=== PATIENT | female | born 1940 | race African-American/Black ===

== ENCOUNTER 2017-12-25 07:29 | Inpatient (IN) ==
[2017-12-25] MEDS ORDERED: Chlorhexidine Gluconate 2% 1 Pack (2 Cloths) TOPICAL SCH (08:45)
[2017-12-25] MEDS ORDERED: Metoprolol Tartrate 25 MG Tablet PO SCH (08:45)
[2017-12-25] MEDS ORDERED: Chlorhexidine 4% Topical 120 APPLIC/120 ML Bottle TOPICAL SCH (08:45)
[2017-12-25] MEDS ORDERED: ceFAZolin 2 GM Premix Inj 2 GM/50 ML PIGGYBACK IV.SIG SCH (09:00)
[2017-12-25] MEDS ORDERED: Sodium Chlor 0.9% Inj 80 ML, Bupivacaine Liposo PF 1.3% Inj 20 ML P-ARTICULR SCH ×2 (09:00)
[2017-12-25] MEDS ORDERED: Tranexamic Acid Inj 925 MG in Sodium Chlor 0.9% Inj 100 ML IV.SIG SCH ×2 (09:00→11:00)
[2017-12-25] MEDS ORDERED: Sodium Chlor 0.9% Inj 500 ML IV.SIG SCH (09:00)
[2017-12-25] MEDS ORDERED: ceFAZolin 2 GM Premix Inj 2 GM/100 ML BAG IV.SIG SCH (09:00)
[2017-12-25] MEDS: fentaNYL Citrate Inj 100 MCG/2 ML Ampul ONE ×2 (09:02→09:27)
[2017-12-25] MEDS ORDERED: Propofol Inj 500 MG/50 ML Vial ONE (10:00)
[2017-12-25] MEDS ORDERED: Bupivacaine/Dextrose 0.75% Inj 2 ML Ampul ONE (10:01)
[2017-12-25] MEDS ORDERED: Zolpidem Tartrate 5 MG Tablet PO PRN (10:08)
[2017-12-25] MEDS ORDERED: Aluminum/Magnesium/Simethacone Susp 30 ML UDC PO PRN (10:08)
[2017-12-25] MEDS ORDERED: Morphine Inj 4 MG/ML Vial IV.PUSH PRN (10:08)
[2017-12-25] MEDS ORDERED: Acetaminophen 325 MG Tablet PO PRN (10:08)
[2017-12-25] MEDS ORDERED: Post-op Orders (for Pharmacy) OTHER STA (10:08)
[2017-12-25] MEDS ORDERED: Bisacodyl 10 MG Supp RECTAL PRN (10:08)
[2017-12-25] MEDS ORDERED: Tranexamic Acid Inj 0 MG in Sodium Chlor 0.9% Inj 100 ML IV.SIG ONE (10:08)
[2017-12-25] MEDS ORDERED: Phenylephrine/NS 1000 MCG/10ML Syringe IV.PUSH ONE (12:00)
--- NOTE | 2017-12-25 13:28 | P.OP ---
- Preoperative Diagnosis (1) Primary osteoarthritis of left knee - Postoperative Diagnosis (1) Primary osteoarthritis of left knee Date of procedure: 12/25/17 Procedure: Left total knee arthroplasty using [place] Triathlon prosthesis (uncemented) Anesthesia: regional (Adductor canal block), local (Exparel), spinal Surgeon: Maximus Desai MD Employment Adjudicator: BRYN Kirkpatrick Estimated blood loss (mL): 220 Tourniquet time (min): 0 Pathology: none sent Operation and Findings: Indications and Findings: This 77-year-old woman has had long-standing arthritis in her left knee over the past 10 years with this progressively worsening to the point that she can only walk a few feet using a walker because of the pain. She has swelling, locking, giving way, difficulty fully extending the knee, deformity in the knee and inability to ascend and descend stairs. She rarely leaves her home because of difficulty. She has been treated by several physicians including the undersigned with analgesics, anti-inflammatory agents, activity modification, intra-articular corticosteroids, exercise and ambulatory aids. Physical findings show a greater than 20 flexion deformity with range only going to 90. There is crepitation on motion with tenderness on motion. There are palpable osteophytes. There is a genu varum deformity. X -ray shows severe osteoarthritis in the knee with loss of articular cartilage to [id number] in the medial compartment, extensive osteophytes posteriorly, medially, laterally and in the patellofemoral joint. There are loose bodies also noted. Operative findings: There is severe osteoarthritis in the left knee with extensive large osteophytes throughout the knee especially in the posterior aspect. She had a limited range of motion initially from -20 of extension to only about 90 of flexion. There was marked medial laxity. There is crepitation. There was eburnation. There is exposed subchondral bone. The prosthesis used was a [place] Triathlon prosthesis. The femur was a size 4, left, cruciate retaining, uncemented. The tibial baseplate was a size 4 Tritanium with a 9 mm X3 polyethylene cruciate retaining spacer. The patella was a size 32 mm asymmetric Tritanium backed. The patient was brought to the clean-air operating suite after administration of a regional anesthetic by adductor canal block. A spinal anesthetic was administered. The position was supine with a small bolster under the hip on the operative side. A pneumatic tourniquet was applied to the upper thigh. The lower extremity was prepped with alcohol, Hibiclens and ChloraPrep and draped in the usual manner with the knee draped free. An appropriate timeout procedure was carried out. An incision was made from about 3 fingerbreadths above the superior medial pole of patella down the tibial tubercle on the medial side. The incision was deepened through the subcutaneous tissue to the retinacular structures which were exposed medially and laterally. A medial retinacular incision was made from the superior medial pole of patella down the tibial tubercle and up into the quadriceps tendon, splitting it longitudinally in the medial one third. The patella was reflected. The infrapatellar fat pad was debulked. The anterior cruciate ligament was excised. Medial and lateral meniscectomies were initiated. Fenestrations were made in the distal femur and proximal tibia for intramedullary referencing guides. The distal femoral cutting guide and jig were assembled for a 5, 8 mm cut. When this was fit into position,the cutting block was stabilized with pins. The jig was removed. The distal femoral cut was completed with the oscillating saw. Multiple osteophytes were trimmed from the distal femur using osteotomes and rongeur. The sizing guide was positioned in place along Whitesides line and the epicondylar axis and stabilized with pins. The femoral size was determined as noted above. The 4-in-1 cutting block was positioned in place. Anterior and posterior cuts were made followed by posterior and anterior chamfer cuts taking care to prevent injury to ligamentous structures. Osteophytes were trimmed from the distal femur. A bone plug was placed into the fenestration of the distal femur. The proximal tibia was exposed. The medial and lateral meniscectomies were completed. Osteophytes were trimmed for eventual placement of the cutting guide. The intramedullary proximal tibial cutting guide was positioned in place and stabilized with a pin for rotation. The depth of cut was verified with a stylus off the high side. The cutting block was stabilized with pins. The jig was removed. The depth of cut was verified and adjusted appropriately with the use of the spacer block. The proximal tibial cut was made with the oscillating saw taking care to prevent injury to neurovascular and ligamentous structures. Proximal tibial bone was removed. Osteophytes were trimmed from the tibia. Multiple large osteophytes and loose bodies were extracted from the posterior aspect of the femur and popliteal fossa. Local anesthetic was administered with Exparel in the posterior capsule. The tibial baseplate trial was positioned in place. After verifying the appropriate size, the base plate trial was positioned in place along with its spacer. The femoral component was impacted into place. The alignment was checked. The tibial baseplate was pinned in place on the tibia. Attention was directed to the patella. The patella drill guide was positioned in place for the appropriate sized patella. Patellar drilling was then carried out. The trial patella was positioned in place. The knee was taken through a range of motion which was easily 0 extension to 130 of flexion. The patella trial was removed. The femoral drill holes were made. The femoral trials were removed. The tibial spacer was removed. A bone plug was placed into the proximal tibia. The tibial punch was impacted through the proximal tibial punch guide. This was all removed followed by placement of the tibial drill guide. The tibial drill holes were made. The guide was removed. The cut ends of bone were cleaned with pulse lavage. The tibial baseplate was impacted into place and seated appropriately. The spacer was inserted. The the femoral component was impacted into place and seated appropriately. The patella component was seated with the patellar vice and tightened appropriately. The knee was taken through a range of motion which was comparable to the previous range of motion with excellent stability in flexion and extension and appropriate patellofemoral tracking. The remainder of the Exparel was injected throughout the knee as a local anesthetic. Drains were brought out the superior lateral aspect of the suprapatellar pouch. Wound closure commenced using 0 Vicryl interrupted [id number] sutures for the capsular and fascial structures, 2-0 Vicryl interrupted simple sutures with buried knots for the subcutaneous tissues and 4-0 Monocryl, continuous subcuticular closure for the skin. The wound was dressed with Dermabond Prineo followed by a dry sterile dressing. Sterile soft roll with a cooling pad and Reed bandage from the base of the toes to mid thigh were applied. Patient was transferred from the operating room to the recovery room in satisfactory condition having tolerated procedure well. Counts were correct. Specimens: None. Estimated blood loss: 220 mL
--- NOTE | 2017-12-25 13:34 | P.DCO ---
- Physical Therapy Physical Therapy: Transfer training, bed to chair Knee: Total knee, Protocol: Left, Gait training, Full weight bearing Left Lower Extremity Weight Bearing: Weight bearing as tolerated Left Lower Extremity Range of Motion: Active ROM (Active, active assisted, passive range of motion. Range of motion goal is 0 extension to 130 of flexion which is what was achieved in the operating room.) - Nursing Nursing: Dressing changes Dressing changes: Daily dressing change, Coverderm/Primapore Additional instructions: Do not remove Dermabond Prineo. - Certification Need for Home Health services: I have seen patient Kinga Maldonado on 12/25/17. My clinical findings support the need for the requested home health care services because: Need for Home Health Services: Limited mobility due to disease progression, Deconditioned with increased weakness, Limited ability to care for self, High risk of falls Homebound Certification: I certify that my clinical findings support that this patient is homebound because: Homebound Certification: Post-op weakness, Unsteady gait/balance, Unsafe to leave home unassisted
[2017-12-25] MEDS: Ketorolac Inj 30 MG/ML (IVP) Vial IV.PUSH SCH ×2 (14:00→18:26)
[2017-12-25] MEDS ORDERED: fentaNYL Citrate Inj 100 MCG/2 ML Ampul ONE (14:18)
--- NOTE | 2017-12-25 14:20 | XR ---
EXAM DATE: 12/25/2017 2:10 PM EDT AGE/SEX: 77 years / Female INDICATIONS: Post op left knee CLINICAL DATA: This is the patient's initial encounter. Patient reports that signs and symptoms have been present for 1 day and indicates a pain score of Nonresponsive. MEDICAL/SURGICAL HISTORY: Non-responsive. . left knee replaced COMPARISON: No prior exams available for comparison. FINDINGS: Total knee arthroplasty is in satisfactory position. The alignment is anatomic. CONCLUSION: Postsurgical changes as above. Electronically signed by: Ethan Lee MD 12/25/2017 2:19 PM EDT
[2017-12-25] MEDS ORDERED: *morphine SULFATE 4 MG/ML PERIprocedure ONLY ONE (14:22)
--- NOTE | 2017-12-25 14:49 | P.CON ---
History of Present Illness Consult date: 12/25/17 Reason for Consult: Medical management Primary Care Provider: Jas Regan MD Family Provider: Jas Regan MD Chief Complaint: Postop left knee arthroplasty History of Present Illness: 77-year-old female with past medical history of end-stage arthritis who despite medical management including NSAIDs, corticosteroid injections, physical therapy over the course of several years continue to have severe left knee pain affecting her daily living of activity including ambulation for which patient has been relying on walker. She was taken to the operating room today and underwent Left total knee arthroplasty. Patient was seen postoperatively in PACU, denies any chest pain or shortness of breath. Vitals remained stable. Review of Systems All other systems reviewed negative except as stated in HPI PMFSH - History History Provided By: Patient - Medical History Medical History: Medical History (Last Reviewed 12/25/17 @ 08:19 by Korina Power) Anxiety Arthritis Back pain COPD (chronic obstructive pulmonary disease) Congenital heart disease Depression Diabetes Fibromyalgia GERD (gastroesophageal reflux disease) High cholesterol Hypertension Joint pain Neck pain Sleep apnea with use of continuous positive airway pressure (CPAP) - Surgical History Surgical History: Surgical History (Last Reviewed 12/25/17 @ 08:20 by Korina Power) History of History of inguinal hernia repair History of laminectomy - Tobacco History Second Hand Smoke Exposure: No Smoking Status: Never smoker Tobacco Type: Cigarettes - Alcohol History How Often Do You Have a Drink Containing Alcohol: Never - Substance Use History Substance History: No History of Abuse - Travel History Recent Travel in the [place] Within the Last 8 Weeks: No Recent Travel Out of the Country Within the Last 8 Weeks: No Medications and Allergies Active Medications: Active Medications Acetaminophen (Tylenol) 650 mg PO Q6H PRN PRN Reason: Pain Less Than 3 On Scale Al Hydrox/Mg Hydrox/Simethicone (Mag-Al Plus Susp Liq) 30 ml PO Q6H PRN PRN Reason: INDIGESTION Al Hydroxide/Mg Hydroxide (Milk Of Magnesia Liq) 30 ml PO BID PRN PRN Reason: Mild Constipation Albuterol (Duoneb Neb (Prn)) 1 ampul NEB QID NEB PRN PRN Reason: Shortness Of Breath Albuterol (Ventolin Hfa Inh) 2 puff INH Q4H PRN PRN Reason: SHORTNESS OF BREATH Amlodipine Besylate (Norvasc) 5 mg PO DAILY [facility] Aspirin (Aspirin Chew) 81 mg PO BID [facility] Atenolol (Tenormin) 50 mg PO DAILY [facility] Atorvastatin Calcium (Lipitor) 40 mg PO HS [facility] Bisacodyl (Dulcolax Supp) 10 mg RECTAL DAILY PRN PRN Reason: SEVERE CONSITIPATION Chlorhexidine Gluconate (Chlorhexidine 2% Cloth) 3 pack TOPICAL OPHTHALMIC PATHOLOGIST [facility] Stop: 12/28/17 08:43 Last Admin: 12/25/17 08:10 Dose: 3 pack Chlorhexidine Gluconate (Hibiclens 4% Topical) 1 applicatio TOPICAL ONCE [facility] Stop: 12/29/17 08:44 Last Admin: 12/25/17 08:35 Dose: 1 applicatio Sodium Chloride 80 ml/ (Bupivacaine Liposome 20 ml) 0 ml P-ARTICULR ONCE [facility] Stop: 12/25/17 16:00 Last Admin: 12/25/17 11:28 Dose: 100 bag Diphenhydramine HCl (Benadryl) 25 mg PO Q6H PRN PRN Reason: ITCHING Duloxetine HCl (Cymbalta) 60 mg PO DAILY [facility] Famotidine (Pepcid) 20 mg PO DAILY [facility] Furosemide (Lasix) 40 mg PO DAILY [facility] Lactated Ringer's (Lr 1000 Ml Inj) 1,000 mls @ 30 mls/hr IV.SIG .Q24H [facility] Stop: 12/28/17 08:43 Last Infusion: 12/25/17 11:29 Dose: Infused Sodium Chloride (Ns Inj) 500 mls @ 30 mls/hr IV.SIG .Q10H [facility] Stop: 12/28/17 08:43 Tranexamic Acid 925 mg/ Sodium (Chloride) 109.25 mls @ 200 mls/hr IV.SIG ONCE [facility] Stop: 12/26/17 18:00 Last Admin: 12/25/17 14:00 Dose: 200 mls/hr Tranexamic Acid 925 mg/ Sodium (Chloride) 109.25 mls @ 200 mls/hr IV.SIG ONCE [facility] Stop: 12/26/17 08:59 Last Infusion: 12/25/17 11:29 Dose: Infused Cefazolin/Sodium Chloride (Ancef 2 Gm Premix Inj) 2 gm in 100 mls @ 200 mls/hr IV.SIG OPHTHALMIC PATHOLOGIST [facility] Last Infusion: 12/25/17 11:29 Dose: Infused Cefazolin Sodium 1,000 mg/ (Sodium Chloride) 100 mls @ 200 mls/hr IV.SIG Q6H [facility] Stop: 12/26/17 05:29 Lactated Ringer's (Lr 1000 Ml Inj) 1,000 mls @ 80 mls/hr IV.CONT .[id number] [facility] Last Admin: 12/25/17 14:00 Dose: 80 mls/hr Ketorolac Tromethamine (Toradol Inj) 15 mg IV.PUSH Q6H [facility] Stop: 12/27/17 07:01 Last Admin: 12/25/17 14:00 Dose: 15 mg Lactulose (Lactulose Liq) 30 ml PO DAILY PRN PRN Reason: SEVERE CONSITIPATION Losartan Potassium (Cozaar) 50 mg PO BID [facility] Metformin HCl (Glucophage) 500 mg PO DAILY [facility] Metoprolol Tartrate (Lopressor) 25 mg PO OPHTHALMIC PATHOLOGIST [facility] Stop: 12/28/17 08:43 Last Admin: 12/25/17 09:26 Dose: Not Given Montelukast Sodium (Singulair) 10 mg PO QPM [facility] Morphine Sulfate (Morphine Inj) 2 mg IV.PUSH Q3H PRN PRN Reason: BREAKTHROUGH PAIN Ondansetron HCl (Zofran Odt) 4 mg PO Q6H PRN PRN Reason: NAUSEA OR VOMITING Oxycodone/Acetaminophen (Percocet 10/325 Mg) 1 tab PO Q4H PRN PRN Reason: PAIN SCALE 6 TO 10 Oxycodone/Acetaminophen (Percocet 5/325 Mg) 1 tab PO Q4H PRN PRN Reason: PAIN LESS THAN 5 ON SCALE Patient Own Medication( Fluticasone Inhalation 50 Mcg) 0 each INH DAILY [facility] Povidone Iodine (Betadine 5% Antisepsis Kit) 1 applicatio EACH NARE OPHTHALMIC PATHOLOGIST [facility] Stop: 12/28/17 08:43 Last Admin: 12/25/17 08:30 Dose: 1 applicatio Pregabalin (Lyrica) 100 mg PO TID [facility] Senna/Docusate Sodium (Susan-Colace) 1 tab PO BID [facility] Sennosides (Senokot) 17.2 mg PO BID PRN PRN Reason: Moderate Constipation Sodium Chloride (Ns Flush) 2 ml IV.FLUSH BID [facility] Sodium Chloride (Ns Flush) 2 ml IV.FLUSH PRN PRN PRN Reason: FLUSH AFTER USING IV ACCESS Zolpidem Tartrate (Ambien) 5 mg PO HS PRN PRN Reason: INSOMNIA Allergies Allergy/AdvReac Type Severity Reaction Status Date / Time codeine Allergy Vomiting Verified 12/25/17 08:20 Home Medications Medication Instructions Recorded Confirmed Type albuterol sulfate [Ventolin HFA] 2 puff INHALATION Q4-6H PRN 11/30/17 12/25/17 History amlodipine 5 mg PO DAILY 11/30/17 12/25/17 History atenolol 50 mg PO DAILY 11/30/17 12/25/17 History duloxetine [Cymbalta] 60 mg PO DAILY 11/30/17 12/25/17 History famotidine [Pepcid] 20 mg PO DAILY 11/30/17 12/25/17 History fluticasone furoate 1 puff INHALATION DAILY 11/30/17 12/25/17 History furosemide 40 mg PO DAILY 11/30/17 12/25/17 History ipratropium-albuterol 3 ml INHALATION QID PRN 11/30/17 12/25/17 History irbesartan 150 mg PO BID 11/30/17 12/25/17 History meloxicam 15 mg PO DAILY 11/30/17 12/25/17 History metformin 500 mg PO DAILY 11/30/17 12/25/17 History montelukast [Singulair] 10 mg PO QPM 11/30/17 12/25/17 History pregabalin [Lyrica] 100 mg PO TID 11/30/17 12/25/17 History rosuvastatin [Crestor] 20 mg PO DAILY 11/30/17 12/25/17 History Physical Exam Vital signs: Vital Signs 12/25/17 08:23 12/25/17 13:45 12/25/17 14:00 Temperature 98.3 F 97.5 F L Pulse Rate 64 62 60 Respiratory Rate 20 20 20 Blood Pressure 145/70 H 111/53 L 112/62 Pulse Oximetry 98 94 L 93 L 12/25/17 14:15 12/25/17 14:34 Temperature Pulse Rate 61 61 Respiratory Rate 20 20 Blood Pressure 139/62 130/60 Pulse Oximetry 95 93 L Intake & Output 12/24/17 12/25/1718 18:59 06:59 18:59 Intake Total 2400.25 / 2400.25 Output Total 265 / 265 Balance 2135.25 / 2135.25 Weight 92.5 kg Intake: IV 1209.25 / 1209.25 LR 1000 mL Inj 1,000 ML @ 30 1000 / 1000 mls/hr IV.SIG .Q24H [facility] Rx#: [id number] Cyklokapron Inj 925 MG In NS 109.25 / 109.25 Inj 100 ML @ 200 mls/hr IV.SIG ONCE [facility] Rx#:[id number] Ancef 2 GM Premix Inj 2 gm In 100 / 100 100 ml @ 200 mls/hr IV.SIG OPHTHALMIC PATHOLOGIST [facility] Rx#:[id number] Anesthesia Amount 1191 / 1191 Output: Estimated Blood Loss 220 / 220 Wound Drainage 45 / 45 Left Knee 45 / 45 Other: Weight On Admission 92.5 kg Narrative: GENERAL: NAD SKIN: Warm and dry. HEAD: Atraumatic. Normocephalic. EYES: Pupils equal and round. No scleral icterus. No injection or drainage. ENT: No nasal bleeding or discharge. Mucous membranes pink and moist. NECK: Trachea midline. No JVD. CARDIOVASCULAR: Regular rate and rhythm. RESPIRATORY: No accessory muscle use. Clear to auscultation. Breath sounds equal bilaterally. GASTROINTESTINAL: Abdomen soft, non-tender, nondistended. Hepatic and splenic margins not palpable. MUSCULOSKELETAL: Extremities without clubbing, cyanosis, or edema. No obvious deformities. NEUROLOGICAL: Awake and alert. No obvious cranial nerve deficits. Motor grossly within normal limits. s/p Left knee repair; dressing in place. Normal speech. PSYCHIATRIC: Appropriate mood and affect; insight and judgment normal. Assessment and Plan - Plan 77-year-old female with s/p Left total knee arthroplasty December 25, 2017 Management per orthopedic surgery DVT prophylaxis per orthopedic surgery PT consult to treat and eval Pain management accordingly History of hypertension, diabetes type II, hyperlipidemia and other chronic medical conditions Resume outpatient medications DVT prophylaxis: Per orthopedic surgery Thank you for this consultation
[2017-12-25] MEDS: oxyCODONE/Acetaminophen 10/325 Tablet PO PRN ×2 (15:46→21:35)
[2017-12-25] MEDS: Montelukast 10 MG Tablet PO SCH (18:26)
[2017-12-25] MEDS: Senna/Docusate Sodium 8.6/50 MG Tablet PO SCH (21:34)
[2017-12-26] MEDS: Ketorolac Inj 30 MG/ML (IVP) Vial IV.PUSH SCH ×5 (01:17→19:00)
[2017-12-26] MEDS: oxyCODONE/Acetaminophen 10/325 Tablet PO PRN ×4 (01:21→12:39)
--- NOTE | 2017-12-26 07:20 | P.PNOP ---
Subjective Interval history: Postop day #1 She is doing relatively well. She does not have a great deal of pain at this time. She indicates that her home is not conducive to therapy and would prefer going to a senior care facility. Her family is largely in agreement that she needs to go to a senior care facility. Physical therapy reports that the ambulation distance was 16 feet. The range of motion was -15 extension to 80 of flexion. Physical Exam Vital signs: Vital Signs 12/25/17 08:23 12/25/17 13:45 12/25/17 14:00 Temperature 98.3 F 97.5 F L Pulse Rate 64 62 60 Respiratory Rate 20 20 20 Blood Pressure 145/70 H 111/53 L 112/62 Pulse Oximetry 98 94 L 93 L 12/25/17 14:15 12/25/17 14:34 12/25/17 15:05 Temperature Pulse Rate 61 61 Respiratory Rate 20 20 18 Blood Pressure 139/62 130/60 Pulse Oximetry 95 93 L 12/25/17 16:00 12/25/17 16:16 12/25/17 18:32 Temperature 97.4 F L Pulse Rate 69 Respiratory Rate 18 18 18 Blood Pressure 153/74 H Pulse Oximetry 96 12/25/17 19:00 12/25/17 20:00 12/25/17 22:04 Temperature 98.2 F Pulse Rate 76 Respiratory Rate 18 17 18 Blood Pressure 137/72 Pulse Oximetry 92 L 12/25/17 22:05 12/26/17 00:00 12/26/17 06:02 Temperature 98.4 F 97.9 F Pulse Rate 83 76 Respiratory Rate 18 17 18 Blood Pressure 110/55 L 106/53 L Pulse Oximetry 94 L 95 Intake & Output 12/25/17 12/26/17 12/26/17 18:59 06:59 18:59 Intake Total 2609.50 / 2609.50 100 / 100 Output Total 265 / 265 250 / 250 Balance 2344.50 / 2344.50 -150 / -150 Weight 92.5 kg Intake: IV 1418.50 / 1418.50 100 / 100 LR 1000 mL Inj 1,000 ML @ 30 1000 / 1000 mls/hr IV.SIG .Q24H [facility] Rx#: [id number] Cyklokapron Inj 925 MG In NS 218.50 / 218.50 Inj 100 ML @ 200 mls/hr IV.SIG ONCE [facility] Rx#:[id number] Ancef 2 GM Premix Inj 2 gm In 100 / 100 100 ml @ 200 mls/hr IV.SIG STRATEGY EXECUTION CONSULTANT [facility] Rx#:[id number] Ancef Inj 1,000 MG In NS Inj 100 / 100 100 / 100 100 ML @ 200 mls/hr IV.SIG Q6H [facility] Rx#:[id number] Anesthesia Amount 1191 / 1191 Output: Estimated Blood Loss 220 / 220 Wound Drainage 45 / 45 250 / 250 Left Knee 45 / 45 250 / 250 Other: Date of Last Bowel Movement 12/24/17 Weight On Admission 92.5 kg Narrative: She is resting comfortably, supine in bed, in the CPM. The dressing is dry and intact. The neurovascular status is intact. Results - Labs Laboratory Results - last 24 hr 12/25/17 12/25/17 08:15 13:57 POC Glucose 75 Blood Type A Positive Blood Type Recheck Required Antibody Screen Negative - Imaging Impressions Knee X-Ray 12/25/17 09:56 CONCLUSION: Postsurgical changes as above. X-ray showed good position and alignment of the prosthesis - Procedures Left total knee arthroplasty using [place] Triathlon prosthesis (uncemented) on 12/25/2017 Assessment and Plan - Ortho Post Op Day # 1 - Problem List (1) Status post total left knee replacement not using cement Code(s): Z96.652 - Presence of left artificial knee joint Status: Acute Plan: Continue postop care and PT - Assessment and Plan Condition: Good. Orthopedically stable. DVT prophylaxis: TEDs, aspirin, sequentials. Discharge plans: Home with home health care versus senior care facility. An appointment was scheduled through the office. Prescriptions: Percocet 5/325; Patient is having significant pain caused by a total knee arthroplasty which will last more than 3 days. Trial of Tylenol has not helped. I believe that it is medically necessary to treat patients pain because it is affecting patients ability to participate in postoperative rehabilitation and perform activities of daily living in a comfortable and efficient manner.
--- NOTE | 2017-12-26 08:19 | P.DS ---
Date of admission: 12/25/17 09:56 Primary care physician: Jas Regan MD Attending physician on discharge: Maximus Desai Anticipated date of discharge: 12/28/17 Brief History from admission: This 77-year-old woman has had long-standing arthritis in her left knee. This has been progressive and has caused a progressive genu varum. She has had limited ability to flex the knee with instability in the knee. She has not responded to conservative measures including intra-articular corticosteroid injections, nonsteroidal anti-inflammatory agents, analgesics and the use of ambulatory aids. She has been largely homebound because of this. Physical findings showed a 20 flexion deformity with flexion only to 90. She had severe osteophytes palpable. In addition there is crepitation on motion. There is a significant varus deformity. X-rays showed severe arthritis with loss of articular cartilage to [id number] in the medial compartment with eburnation, extensive osteophytes in the medial, lateral and patellofemoral compartments and in the popliteal fossa. DS: Diagnosis - Discharge Diagnosis (1) Status post total left knee replacement not using cement Status: Acute Diagnosis: Principal (2) Primary osteoarthritis of left knee Status: Chronic Diagnosis: Principal DS: Medications - Discharge Medications Prescriptions: oxycodone-acetaminophen 1 tab PO Q4H PRN 7 Days #42 tab PRN Reason: Pain, Severe DS: Summary Hospital Course: The patient was admitted as noted above. The above noted operative procedure was carried out that day. Preoperatively prophylactic antibiotics were administered Ancef according to protocol. These were continued postoperatively. The patient also received tranexamic acid to help with hemostasis according to protocol. In the postanesthesia care unit a continuous passive motion device was initiated. Also initiated were mechanical methods of DVT prophylaxis in the form of ELIEZER stockings and sequentials. Physical therapy was initiated on the day of surgery. On postoperative day #1 physical therapy continued. The use of the continuous passive motion device continued. DVT prophylaxis with aspirin 81 mg twice daily was initiated at this time. The patient continued physical therapy throughout the hospitalization. The distance walked and range of motion improved throughout the hospitalization. 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 An appointment for follow-up was made prior to admission. - Time Spent with Patient Total time spent providing and/or coordinating discharge services: Greater than 30 minutes Exam Vital signs: Vital Signs 12/25/17 08:23 12/25/17 13:45 12/25/17 14:00 Temperature 98.3 F 97.5 F L Pulse Rate 64 62 60 Respiratory Rate 20 20 20 Blood Pressure 145/70 H 111/53 L 112/62 Pulse Oximetry 98 94 L 93 L 12/25/17 14:15 12/25/17 14:34 12/25/17 15:05 Temperature Pulse Rate 61 61 Respiratory Rate 20 20 18 Blood Pressure 139/62 130/60 Pulse Oximetry 95 93 L 12/25/17 16:00 12/25/17 16:16 12/25/17 18:32 Temperature 97.4 F L Pulse Rate 69 Respiratory Rate 18 18 18 Blood Pressure 153/74 H Pulse Oximetry 96 12/25/17 19:00 12/25/17 20:00 12/25/17 22:04 Temperature 98.2 F Pulse Rate 76 Respiratory Rate 18 17 18 Blood Pressure 137/72 Pulse Oximetry 92 L 12/25/17 22:05 12/26/17 00:00 12/26/17 05:56 Temperature 98.4 F Pulse Rate 83 Respiratory Rate 18 17 18 Blood Pressure 110/55 L Pulse Oximetry 94 L 12/26/17 06:02 12/26/17 07:25 12/26/17 07:57 Temperature 97.9 F 98.1 F Pulse Rate 76 78 Respiratory Rate 18 18 18 Blood Pressure 106/53 L 121/58 L Pulse Oximetry 95 94 L Intake & Output 12/25/17 12/26/17 12/26/17 18:59 06:59 18:59 Intake Total 2609.50 / 2609.50 100 / 100 Output Total 265 / 265 250 / 250 Balance 2344.50 / 2344.50 -150 / -150 Weight 92.5 kg Intake: IV 1418.50 / 1418.50 100 / 100 LR 1000 mL Inj 1,000 ML @ 30 1000 / 1000 mls/hr IV.SIG .Q24H [facility] Rx#: [id number] Cyklokapron Inj 925 MG In NS 218.50 / 218.50 Inj 100 ML @ 200 mls/hr IV.SIG ONCE [facility] Rx#:[id number] Ancef 2 GM Premix Inj 2 gm In 100 / 100 100 ml @ 200 mls/hr IV.SIG [employer] [facility] Rx#:[id number] Ancef Inj 1,000 MG In NS Inj 100 / 100 100 / 100 100 ML @ 200 mls/hr IV.SIG Q6H [facility] Rx#:[id number] Anesthesia Amount 1191 / 1191 Output: Estimated Blood Loss 220 / 220 Wound Drainage 45 / 45 250 / 250 Left Knee 45 / 45 250 / 250 Other: Date of Last Bowel Movement 12/24/17 Weight On Admission 92.5 kg Narrative: She is resting comfortably, supine in bed. The dressing is dry and intact. Her neurovascular status is intact. There is no erythema nor induration. Results Procedures completed during hospitalization: Left total knee arthroplasty using [place] Triathlon prosthesis (uncemented) on 12/25/2017 Labs on day of discharge: Labs from last 24 hours 12/25/17 12/25/17 13:57 08:15 POC Glucose 75 Blood Type A Positive Blood Type Recheck Required Antibody Screen Negative - Impressions ITS Impressions Knee X-Ray 12/25/17 09:56 CONCLUSION: Postsurgical changes as above. Discharge Plan - Discharge Disposition Patient Disposition: 03 Discharge to SNF - Discharge Condition Condition: Stable - Discharge Order Discharge Orders: Discharge Order (Routine); Ordered 12/28/17 Ordered By: Maximus Desai - Discharge Details Anticipated Discharge Date: 12/26/17 - Physicians Team Primary Care Provider: Jas Regan Attending Provider: Maximus Desai Other Providers: Daryn Last MD ; [facility] ; [facility] - Rxs /Orders / Referrals /Forms Prescriptions: New oxycodone-acetaminophen 5-325 mg Tablet 1 tab PO Q4H PRN (Reason: Pain, Severe) 7 Days Qty: 42 RF: 0 Continue albuterol sulfate [Ventolin HFA] 90 mcg/actuation Hfa Aerosol Inhaler 2 puff INHALATION Q4-6H PRN (Reason: Shortness Of Breath) amlodipine 5 mg Tablet 5 mg PO DAILY atenolol 50 mg Tablet 50 mg PO DAILY duloxetine [Cymbalta] 60 mg Capsule,Delayed Release(Dr/Ec) 60 mg PO DAILY famotidine [Pepcid] 20 mg Tablet 20 mg PO DAILY fluticasone furoate 50 mcg/actuation Blister With Device 1 puff Inhalation DAILY furosemide 40 mg Tablet 40 mg PO DAILY ipratropium-albuterol 0.5 mg-3 mg(2.5 mg base)/3 mL Solution For Nebulization 3 ml INHALATION QID PRN (Reason: Shortness Of Breath) irbesartan 150 mg Tablet 150 mg PO BID meloxicam 15 mg Tablet 15 mg PO DAILY metformin 500 mg Tablet Extended Release 24 Hr 500 mg PO DAILY montelukast [Singulair] 10 mg Tablet 10 mg PO QPM pregabalin [Lyrica] 100 mg Capsule 100 mg PO TID rosuvastatin [Crestor] 20 mg Tablet 20 mg PO DAILY Referrals: Maximus Desai MD [Physician] - See Instructions Jas Regan MD [Primary Care Provider] - See Instructions - Discharge Instructions Patient Printed Instructions: Oxycodone/Acetaminophen (By mouth), How to Use an Incentive Spirometer (ED), How to Choose and Use a Walker (GEN), ELIEZER Hose (DC ), Knee Replacement (DC) Additional Instructions: PLEASE TAKE YOUR PERCOCET FOR PAIN. PLEASE REPORT TO YOUR DOCTOR IF YOU HAVE ANY UNRELIEVED FEVERS. - Post Discharge Care Plan Care Plan Goals: Discharge Care Plan Goals for Total Knee Replacement You have undergone knee replacement surgery. Your doctor replaced your painful joint with an artificial joint to relieve pain and restore movement. Here are some goals to help you heal well. Directions to Meet your Goals: 1. Activity & Exercises: * Take pain medicine as directed by your doctor. * Sit in chairs with arms. The arms make it easier for you to stand up or sit down. * Dont sit for more than 30 to 45 minutes at one time. * Nap if you are tired, but dont stay in bed all day. * Sleep with a pillow under your ankle, not your knee. Be sure to change the position of your leg during the night. * Wear the support stockings you were given in the hospital as directed by your surgeon. 2. Prevent Falls/Injury: The singh to successful recovery is movement with walking and exercising your knee as directed by your doctor. * Arrange your household to keep the items you need handy. Keep everything else out of the way. * Remove items that may cause you to fall, such as throw rugs and electrical cords. * Use nonslip bath mats, grab bars, an elevated toilet seat, and a shower chair in your bathroom * Sit on a shower stool or chair when you shower to keep from falling. * Until your balance, flexibility, and strength improve, use a cane, crutches, a walker, handrails, or someone to help you. * Keep your hands free by using a backpack, ky pack, apron, or pockets to carry things * Walk up and down stairs with support. Try one step at a time. Use the railing if possible. * Dont drive until your doctor says its OK. * Dont drive while you are taking opioid pain medicine. 3. Precautions: * Prevent infection. Any infection will need to be treated immediately. Call your doctor right away if you think you might have an infection. * Tell your dentist that you have an artificial joint and take antibiotics as prescribed before any dental work. * Tell all your healthcare providers about your artificial joint before any medical procedure. * Maintain a healthy weight. Get help to lose any extra pounds. Added body weight puts stress on the knee. * Your medications may include blood-thinning medicine to prevent blood clots or antibiotics to prevent infection-prevent any falls or cuts 4. Incision Care: * Prevent infection by washing your hands often. If an infection occurs, it will need to be treated right away. * Call your doctor right away if you think you may have an infection. Symptoms include a fever or an incision that leaks white, green, or yellow fluid. * Don't soak your incision in water until your doctor says its OK. This means no hot tubs, bathtubs, or swimming pools. * Follow your doctor's instructions for changing the dressing. * Dont rub the incision, or apply creams or lotions to it. * If you notice any redness or drainage around the bandage site, contact your surgeon's office immediately. 5. Follow-Up: Do Not miss your follow-up appointment. Keep up with all your appointments and yearly check ups When to call your doctor: Call your doctor right away if you have: Fever of 100.4F (38C) or higher, or as directed by your doctor Shaking chills Stiffness, or inability to move the knee Increased swelling in your leg Increased redness, tenderness, or swelling in or around the knee incision Drainage from the knee incision Increased knee pain Call 911: Call 911 right away if you have: Chest pain Shortness of breath Any pain or tenderness in your calf
[2017-12-26] MEDS ORDERED: FLUTICASONE 50 MCG INH SCH (09:00)
[2017-12-26 09:07] LABS: Hematocrit 31.3 % (35.0-46.0); Hemoglobin 10.4 gm/dL (11.6-15.3)
[2017-12-26] MEDS: Furosemide 40 MG Tablet PO SCH (09:11)
[2017-12-26] MEDS: Atenolol 50 MG Tablet PO SCH (09:12)
[2017-12-26] MEDS: Famotidine 20 MG Tablet PO SCH (09:12)
[2017-12-26] MEDS: amLODIPine 5 MG Tablet PO SCH (09:12)
[2017-12-26] MEDS: Senna/Docusate Sodium 8.6/50 MG Tablet PO SCH ×2 (09:12→21:49)
[2017-12-26] MEDS: Duloxetine 60 MG DR Capsule PO SCH (09:12)
--- NOTE | 2017-12-26 11:21 | P.PN ---
Subjective Interval history: Follow-up visit for left knee arthroplasty, HTN, and diabetes. Patient seen and examined sitting up in chair, appears to be in no acute distress. Reports she did physical therapy this morning, some left knee pain, pain is relieved with her pain medication. She denies any shortness of breath, cough, fevers, chills, nausea, vomiting, diarrhea, or dysuria. Physical Exam Vital signs: Vital Signs 12/25/17 13:45 12/25/17 14:00 12/25/17 14:15 Temperature 97.5 F L Pulse Rate 62 60 61 Respiratory Rate 20 20 20 Blood Pressure 111/53 L 112/62 139/62 Pulse Oximetry 94 L 93 L 95 12/25/17 14:34 12/25/17 15:05 12/25/17 16:00 Temperature 97.4 F L Pulse Rate 61 69 Respiratory Rate 20 18 18 Blood Pressure 130/60 153/74 H Pulse Oximetry 93 L 96 12/25/17 16:16 12/25/17 18:32 12/25/17 19:00 Temperature Pulse Rate Respiratory Rate 18 18 18 Blood Pressure Pulse Oximetry 12/25/17 20:00 12/25/17 22:04 12/25/17 22:05 Temperature 98.2 F Pulse Rate 76 Respiratory Rate 17 18 18 Blood Pressure 137/72 Pulse Oximetry 92 L 12/26/17 00:00 12/26/17 05:56 12/26/17 06:02 Temperature 98.4 F 97.9 F Pulse Rate 83 76 Respiratory Rate 17 18 18 Blood Pressure 110/55 L 106/53 L Pulse Oximetry 94 L 95 12/26/17 07:25 12/26/17 07:57 Temperature 98.1 F Pulse Rate 78 Respiratory Rate 18 18 Blood Pressure 121/58 L Pulse Oximetry 94 L Intake & Output 12/25/17 12/26/17 12/26/17 18:59 06:59 18:59 Intake Total 2609.50 / 2609.50 100 / 100 Output Total 265 / 265 250 / 250 Balance 2344.50 / 2344.50 -150 / -150 Weight 92.5 kg Intake: IV 1418.50 / 1418.50 100 / 100 LR 1000 mL Inj 1,000 ML @ 30 1000 / 1000 mls/hr IV.SIG .Q24H [facility] Rx#: [id number] Cyklokapron Inj 925 MG In NS 218.50 / 218.50 Inj 100 ML @ 200 mls/hr IV.SIG ONCE [facility] Rx#:[id number] Ancef 2 GM Premix Inj 2 gm In 100 / 100 100 ml @ 200 mls/hr 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 SKIN: Warm and dry. HEAD: Atraumatic. Normocephalic. EYES: Pupils equal and round. No scleral icterus or drainage. ENT: Mucous membranes pink and moist. NECK: Trachea midline. No JVD. CARDIOVASCULAR: Regular rate and rhythm. RESPIRATORY: No accessory muscle use. Clear to auscultation. Breath sounds equal bilaterally. GASTROINTESTINAL: Abdomen soft, non-tender, nondistended. + Bowel sounds MUSCULOSKELETAL: Extremities without clubbing or cyanosis. Left knee/leg in Reed wrap with accordion drain. + Foot sensation, capillary refill less than 3 seconds, movement. NEUROLOGICAL: Awake and alert. No obvious cranial nerve deficits. Motor grossly within normal limits. Normal speech. PSYCHIATRIC: Appropriate mood and affect; insight and judgment normal. Results - Labs CBC & Chem 7: 12/26/17 07:46 Laboratory Results - last 24 hr 12/25/17 12/26/17 13:57 07:46 Hgb 10.4 L Hct 31.3 L POC Glucose 75 - Imaging Impressions Knee X-Ray 12/25/17 09:56 CONCLUSION: Postsurgical changes as above. - Procedures Left total knee arthroplasty using [place] Triathlon prosthesis (uncemented) on 12/25/2017 Assessment and Plan - Plan 77-year-old female with s/p Left total knee arthroplasty December 25, 2017 Management per orthopedic surgery DVT prophylaxis per orthopedic surgery PT following Pain management with p.o Percocet History of hypertension, diabetes type II, hyperlipidemia and other chronic medical conditions Continue metformin 500 mg daily, Cozaar 50 mg twice a day, Lasix 40 mg daily , Norvasc 5 mg daily, atenolol 50 mg daily, and Lipitor. BP and heart rate stable DVT prophylaxis: Per orthopedic surgery aspirin 81 mg twice daily Discussed Condition With: Patient and family Discharge Planning: Rehab vs home, patient has not decided yet.
[2017-12-26] MEDS: Montelukast 10 MG Tablet PO SCH (21:00)
[2017-12-27] MEDS: Ketorolac Inj 30 MG/ML (IVP) Vial IV.PUSH SCH ×2 (01:17→06:12)
--- NOTE | 2017-12-27 07:39 | P.PNOP ---
Subjective Interval history: Postop day #2 She is not sure whether or not she wants to go home or to a half-way facility. Apparently someone has advised her to go to a half-way facility because she is not as motivated with family as she is with strangers. Physical therapy reports that the ambulation distance was 14 feet, then 22 feet. The range of motion was -8 extension to 76 of flexion. Physical Exam Vital signs: Vital Signs 12/26/17 07:25 12/26/17 07:30 12/26/17 07:57 Temperature 98.1 F Pulse Rate 78 Respiratory Rate 18 18 18 Blood Pressure 121/58 L Pulse Oximetry 94 L 12/26/17 11:59 12/26/17 15:44 12/26/17 20:00 Temperature 98.6 F 97.8 F 98.4 F Pulse Rate 76 82 77 Respiratory Rate 18 17 17 Blood Pressure 115/52 L 102/50 L 111/55 L Pulse Oximetry 92 L 92 L 95 12/26/17 22:18 12/27/17 01:20 12/27/17 01:34 Temperature 99.0 F Pulse Rate 78 Respiratory Rate 18 17 18 Blood Pressure 117/55 L Pulse Oximetry 92 L 12/27/17 06:13 Temperature Pulse Rate Respiratory Rate 18 Blood Pressure Pulse Oximetry Intake & Output 12/26/17 12/27/17 12/27/17 18:59 06:59 18:59 Intake Total 1200 / 1200 480 / 480 Output Total 75 / 75 Balance 1200 / 1200 405 / 405 Intake: Oral 1200 / 1200 480 / 480 Output: Wound Drainage 75 / 75 Left Knee 75 / 75 Other: # Voids 5 Date of Last Bowel Movement 12/24/17 12/26/17 Narrative: She is resting comfortably, supine in bed, in the CPM. The CPM is misdirected. The neurovascular status is intact. The dressing is dry and intact. There is no evidence of infection at this time. Results - Labs CBC & Chem 7: 12/26/17 07:46 Laboratory Results - last 24 hr 12/26/17 07:46 Hgb 10.4 L Hct 31.3 L - Procedures Left total knee arthroplasty using [employer] Triathlon prosthesis (uncemented) on 12/25/2017 Assessment and Plan - Ortho Post Op Day # 2 - Problem List (1) Status post total left knee replacement not using cement Code(s): Z96.652 - Presence of left artificial knee joint Status: Acute Plan: Continue postop care and PT. The CPM is to be discontinued. (2) Primary osteoarthritis of left knee Code(s): M17.12 - Unilateral primary osteoarthritis, left knee Status: Chronic - Assessment and Plan Condition: Good. Orthopedically stable. DVT prophylaxis: TEDs, aspirin, sequentials. Discharge plans: Home with home health care versus half-way facility. An appointment was scheduled through the office. Prescriptions: Percocet 5/325; Patient is having significant pain caused by a total knee arthroplasty which will last more than 3 days. Trial of Tylenol has not helped. I believe that it is medically necessary to treat patients pain because it is affecting patients ability to participate in postoperative rehabilitation and perform activities of daily living in a comfortable and efficient manner.
[2017-12-27 08:18] LABS: Hematocrit 31.2 % (35.0-46.0)
[2017-12-27] MEDS: Senna/Docusate Sodium 8.6/50 MG Tablet PO SCH ×2 (08:40→22:14)
[2017-12-27] MEDS: amLODIPine 5 MG Tablet PO SCH (08:40)
[2017-12-27] MEDS: Furosemide 40 MG Tablet PO SCH (08:40)
[2017-12-27] MEDS: Duloxetine 60 MG DR Capsule PO SCH (08:40)
[2017-12-27] MEDS: Famotidine 20 MG Tablet PO SCH (08:41)
[2017-12-27] MEDS: Atenolol 50 MG Tablet PO SCH (08:41)
--- NOTE | 2017-12-27 12:23 | P.PN ---
Subjective Interval history: Follow-up visit for total left knee arthroplasty, hypertension, and diabetes mellitus. Patient seen and examined sitting up in chair in no acute distress. She denies any fevers, chills, nausea, vomiting, diarrhea, cough, shortness of breath or chest pain. She reports doing well with physical therapy. Physical Exam Vital signs: Vital Signs 12/26/17 15:44 12/26/17 20:00 12/26/17 22:18 Temperature 97.8 F 98.4 F Pulse Rate 82 77 Respiratory Rate 17 17 18 Blood Pressure 102/50 L 111/55 L Pulse Oximetry 92 L 95 12/27/17 01:20 12/27/17 01:34 12/27/17 06:13 Temperature 99.0 F Pulse Rate 78 Respiratory Rate 17 18 18 Blood Pressure 117/55 L Pulse Oximetry 92 L 12/27/17 06:42 12/27/17 08:00 Temperature 98.2 F Pulse Rate 82 Respiratory Rate 18 20 Blood Pressure 111/57 L Pulse Oximetry 93 L Intake & Output 12/26/17 12/27/17 12/27/17 18:59 06:59 18:59 Intake Total 1200 / 1200 480 / 480 Output Total 125 / 125 Balance 1200 / 1200 355 / 355 Intake: Oral 1200 / 1200 480 / 480 Output: Wound Drainage 125 / 125 Left Knee 125 / 125 Other: # Voids 5 Date of Last Bowel Movement 12/24/17 12/26/17 12/26/17 Narrative: GENERAL: Well-developed, well-nourished elderly female sitting up in chair. SKIN: Warm and dry. HEAD: Atraumatic. Normocephalic. EYES: Pupils equal and round. No scleral icterus or drainage. ENT: Mucous membranes pink and moist. NECK: Trachea midline. CARDIOVASCULAR: Regular rate and rhythm. RESPIRATORY: No accessory muscle use. Clear to auscultation. Breath sounds equal bilaterally. GASTROINTESTINAL: Abdomen soft, non-tender, nondistended. + Bowel sounds MUSCULOSKELETAL: Extremities without clubbing or cyanosis. Left knee/leg in Reed wrap. + Foot sensation, capillary refill less than 3 seconds, movement. NEUROLOGICAL: Awake and alert. No obvious cranial nerve deficits. Motor grossly within normal limits. Normal speech. PSYCHIATRIC: Appropriate mood and affect; insight and judgment normal. Results - Labs CBC & Chem 7: 12/27/17 06:30 Laboratory Results - last 24 hr 12/27/17 06:30 Hgb 10.0 L Hct 31.2 L - Procedures Left total knee arthroplasty using [place] Triathlon prosthesis (uncemented) on 12/25/2017 Assessment and Plan - Plan 77-year-old female with s/p Left total knee arthroplasty December 25, 2017 Management per orthopedic surgery DVT prophylaxis per orthopedic surgery PT following Pain management with p.o Percocet Follow-up H&H stable History of hypertension, diabetes type II, hyperlipidemia and other chronic medical conditions Continue metformin 500 mg daily, Cozaar 50 mg twice a day, Lasix 40 mg daily , Norvasc 5 mg daily, atenolol 50 mg daily, and Lipitor. BP and heart rate stable, no changes to medications DVT prophylaxis: Per orthopedic surgery aspirin 81 mg twice daily Patient medically stable. [facility] will sign off, reconsult if needed. Discharge Planning: Rehab vs home
[2017-12-27] MEDS: Montelukast 10 MG Tablet PO SCH (17:47)
--- NOTE | 2017-12-28 07:35 | P.PNOP ---
Subjective Interval history: Postop day #3 She is doing relatively well. She has some pain, as expected. She plans to go to a group home facility, [facility]. 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 Physical therapy reports that the ambulation distance was 50 feet, then 20 feet in the morning and 30 feet in the afternoon. The range of motion was -5 extension to 82 of flexion. Physical Exam Vital signs: Vital Signs 12/27/17 08:00 12/27/17 12:00 12/27/17 16:00 Temperature 98.2 F 98 F 98 F Pulse Rate 82 80 77 Respiratory Rate 20 19 20 Blood Pressure 111/57 L 111/60 109/56 L Pulse Oximetry 93 L 93 L 90 L 12/27/17 20:00 12/28/17 00:00 12/28/17 04:00 Temperature 98.3 F 98.6 F 98.8 F Pulse Rate 85 92 H 90 Respiratory Rate 19 18 18 Blood Pressure 104/56 L 126/59 L 121/60 Pulse Oximetry 94 L 92 L 94 L Intake & Output 12/27/17 12/28/17 12/28/17 18:59 06:59 18:59 Intake Total 0 / 0 Balance 0 / 0 Intake: IV 0 / 0 LR 1000 mL Inj 1,000 ML @ 80 0 / 0 mls/hr IV.CONT .[id number] [facility] Rx# :[id number] Other: # Voids 3 Date of Last Bowel Movement 12/26/17 12/26/17 Narrative: She is resting comfortably, supine in bed. The dressing is dry and intact. There is no erythema nor induration. The neurovascular status is intact. Results - Labs CBC & Chem 7: 12/27/17 06:30 Laboratory Results - last 24 hr 12/27/17 06:30 Hgb 10.0 L Hct 31.2 L - Procedures Left total knee arthroplasty using [employer] Triathlon prosthesis (uncemented) on 12/25/2017 Assessment and Plan - Ortho Post Op Day # 3 - Problem List (1) Status post total left knee replacement not using cement Code(s): Z96.652 - Presence of left artificial knee joint Status: Acute (2) Primary osteoarthritis of left knee Code(s): M17.12 - Unilateral primary osteoarthritis, left knee Status: Chronic - Assessment and Plan Condition: Good. Orthopedically stable. DVT prophylaxis: TEDs, aspirin, sequentials. Discharge plans: [facility], a group home facility. An appointment was scheduled through the office. Prescriptions: Percocet 5/325; Patient is having significant pain caused by a total knee arthroplasty which will last more than 3 days. Trial of Tylenol has not helped. I believe that it is medically necessary to treat patients pain because it is affecting patients ability to participate in postoperative rehabilitation and perform activities of daily living in a comfortable and efficient manner.
[2017-12-28] MEDS: amLODIPine 5 MG Tablet PO SCH (09:35)
[2017-12-28] MEDS: Duloxetine 60 MG DR Capsule PO SCH (09:35)
[2017-12-28] MEDS: Furosemide 40 MG Tablet PO SCH (09:35)
[2017-12-28] MEDS: Atenolol 50 MG Tablet PO SCH (09:35)
[2017-12-28] MEDS: Senna/Docusate Sodium 8.6/50 MG Tablet PO SCH (09:35)
[2017-12-28] MEDS: Famotidine 20 MG Tablet PO SCH (09:36)
== END 2017-12-28 11:04 ==
LOC: HSDC 07:29 → N06 09:56 → EDSTATUS 10:00
PROVIDERS: ADMIT Orthopaedic Surgery; ATTEND Orthopaedic Surgery